=== PATIENT | female | born 1950 | race Caucasian/White ===

== ENCOUNTER 2019-01-06 12:29 | Inpatient (IN) ==
[2019-01-06] MEDS ORDERED: TORADOL IV ONE (12:49)
--- NOTE | 2019-01-06 12:53 | PROVIDER DOCUMENTATION ---
HPI-General Adult - General Chief Complaint: Extremity Injury Stated Complaint: FALL/LEFT LOWER EXTERMITY PAIN Time Seen by Provider: 01/06/19 12:39 Source: patient Allergies/Adverse Reactions: Patient Allergies Allergy/AdvReac Type Severity Reaction Status Date / Time acetaminophen [From Lortab] AdvReac Unknown Verified 01/06/19 13:33 benzonatate AdvReac DIZZINESS Verified 01/06/19 13:33 [From Tessalon Perles] hydrocodone [From Lortab] AdvReac Unknown Verified 01/06/19 13:33 Home Medications: Home Medication List Medication Instructions Recorded Confirmed Last Taken Type Mycophenolate Mofetil [Cellcept] 250 mg PO BID 01/06/19 01/06/19 Unknown History Tacrolimus [Prograf] 1 cap PO DIRECTED 01/06/19 01/06/19 Unknown History - History of Present Illness -Gen Adult Nature of Presenting Problems: Pt. is 68 yof that presents with c/o left hip pain after she states she missed a step and caused her to fall. She denies any other pain. Pt. reports a Hx of liver transplant 10 years ago. She has not other complaints. Location of Pain/Injury: reports: pelvis (Left hip). denies: none, head, face, mouth, neck, chest, upper extremity, hand(s), abdomen, back, genitalia, lower extremity, feet, upper body, lower body, generalized, other Pain Radiation: reports: no radiation. denies: arm(s), back, buttocks, chest, epigastric, feet, groin, jaw, flank (L), legs (lower), LLQ, LUQ, neck, periumbilical, flank (R), RLQ, RUQ, shoulder(s), scapula, scrotal, sternal notch, suprapubic, legs (upper), urethral, vaginal, other Quality of Pain: reports: aching. denies: burning, cramping, sharp, stabbing, throbbing, tightness Severity: reports: moderate. denies: mild, severe Onset/Duration: reports: abrupt, just prior to arrival Timing: reports: still present. denies: improving, intermittent, constant, getting worse Context/Activities at Onset: reports: light activity, recent trauma history Modifying Factors: improves with: immobilization. worse with: movement Associated Symptoms: reports: joint pain (Left hip). denies: denies symptoms, anxiety, arm pain, back/neck pain, chest pain, constipation, cough, diaphoresis, diarrhea, dizziness, EENT symptoms, fatigue, fever/chills, genitourinary problems, headaches, heartburn, loss of appetite, malaise, muscle aches, sinus congestion/drainage, nausea, rash, seizure, shortness of breath, sensory/motor loss, pain with inspiration, swelling/mass in abdomen, syncope, vomiting, weakness, trouble walking, other Similar Symptoms Previously?: No Recently seen or treated by another doctor?: No Review of Systems - Adult - REVIEW OF SYSTEMS - ADULT Constitutional: reports: no symptoms reported Eyes: reports: no symptoms reported Ears, Nose, Mouth & Throat: reports: no symptoms reported Cardiovascular: reports: no symptoms reported Respiratory: reports: no symptoms reported Gastrointestinal: reports: no symptoms reported Genitourinary: reports: no symptoms reported Musculoskeletal: reports: see HPI, joint pain (Left hip). denies: back pain, muscle aches, neck pain Integumentary: reports: no symptoms reported Neurological: reports: no symptoms reported Psychiatric: reports: no symptoms reported Past History - Adult - PAST MEDICAL HISTORY-ADULT Review of Records: reports: Old Records Reviewed, Nursing Assessment Review, Medications Reviewed, Social history reviewed & non-contributory. - IMMUNIZATION STATUS Childhood Immunizations: See Nurse Assessment Flu Vaccine: See Nurse Assessment - FAMILY HISTORY Family History: reviewed, not pertinent - SOCIAL HISTORY Smoking: non-smoker Physical Exam-General - PHYSICAL EXAM-ADULT Initial Vital Signs Reviewed: Yes - CONSTITUTIONAL General Appearance: alert, no apparent distress, thin. negative: anxious, slow to respond, obtunded, combative - EYES Eyes: PERRL/EOMI, pink conjunctivae. negative: conjuctival exudate, scleral icterus, subconjunctival hemorrhage - HEAD, EARS, NOSE, MOUTH & THROAT HENMT: normocephalic/atraumatic, moist mucous membranes. negative: angioedema, frontal tenderness, maxillary tenderness - NECK Neck: non-tender, full range of motion, supple, normal inspection. negative: lymphadenopathy, trachial deviation, thyromegaly - RESPIRATORY Respiratory: lungs clear, normal breath sounds. negative: crackles, rales, rhonchi, stridor, wheezing - CARDIOVASCULAR Cardiovascular: normal peripheral pulses, regular rate, rhythm, no edema, no JVD . negative: extra beats, friction rub, irregularly irregular - GASTROINTESTINAL (ABDOMEN) Abdominal Exam: normal bowel sounds, non tender, soft. negative: distended, guarding, rigid, rebound, tenderness, hernia, mass - LYMPHATIC Lymphatic: no adenopathy. negative: axilla node tender, cervical node tenderness - MUSCULOSKELETAL Back Exam: normal inspection, no CVA tenderness, no vertebral tenderness. negative: ecchymosis, swelling, vertebral tenderness Extremity: tenderness (Left hip). negative: deformity, erythema, inflammation, swelling Peripheral Pulses: radial (R): 2+, radial (L): 2+ - SKIN Integumentary: normal color, normal turgor, warm/dry. negative: cyanosis, erythema, jaundice, pallor, swelling, tenderness - NEUROLOGIC Neurologic: grossly normal, no motor/sensory deficits. negative: aphasia, facial droop, focal weakness, motor weakness, sensory deficit - PSYCHIATRIC Psych/Mental Status: normal mood/affect, normal thought content, normal thought process, oriented x 3. negative: anxious, paranoid, tearful Progress - PLAN OF CARE/RESULTS Progress/Plan/Lab Results: Vital Signs - 8 hr 01/06/19 12:37 Temperature 98.5 F Pulse Rate 89 Respiratory Rate 18 O2 Sat by Pulse Oximetry 96 Orders Category Date Time Status CHEST-1 VIEW [RAD] Stat Exams 01/06/19 12:44 Ordered XRAY PELVIS W/HIP 2-3VW LT [RAD] Stat Exams 01/06/19 12:44 Ordered Laboratory Tests 01/06/19 13:49 Urine Source CATH Discussed results and plan of care with patient. Patient agrees with plan and verbalizes understanding. Result Diagrams: 01/06/19 13:49 - XRAY 1 XRAY Study: Chest ([facility] [address], [address], [place] [address] Department of Imaging Patient: DANIEL WATERMAN Date: 01/06/19MR#: [id number] : 1950ADM Status: REG [facility]#: [id number] Ag e/Sex: 68/FRoom/Bed: Loc: ED Ordering Physician: Rodriguez Lagos Family Physician: Pari Trimble MD Reason for Procedure: Fall Signed EXAM: CHEST-1 VIEW HISTORY: Fall TECHNIQUE: Chest single view COMPARISON: 02/01/2015 FINDINGS: The lungs are well expanded. There is scarring in the apices. No pneumothorax. The heart is not enlarged. The vessels are not distended. There are no infiltrates. No effusion identified. Moderate scoliosis. IMPRESSION: No injury. Electronically signed by Len Molina 01/06/2019 1:18 PM 01/06/19 1318 Interpreting Physician: Len Molina MD Dictated Date/Time: 01/06/19 1317 cc: Rodriguez Lagos; Pari Trimble MD) XRAY Interpretation: See note 2 XRAY: Left XRAY Study: Hip ([facility] [address] [facility], [address], [place] [address] Department of Imaging Patient: DANIEL WATERMAN Date: 01/06/19MR#: [id number] : 1950ADM Status: REG ERAcct#: [id number] Age/Sex: 68/FRoom/Bed: Loc: ED Ordering Physician: Rodriguez Lagos Family Physician: Pari Trimble MD Reason for Procedure: fall Signed EXAM: XRAY PELVIS W/HIP 2-3VW LT 01/06/2019 HISTORY: fall TECHNIQUE: AP pelvis and left hip three views COMMENT: There is an intertrochanteric fracture of the left femur. There is generalized osteopenia. This was not p resent on 01/15/2017. IMPRESSION: Left intertrochanteric fracture. Electronically signed by Jama Stuart 01/06/2019 1:17 PM 01/06/197 Interpreting Physician: Jama Stuart MD Dictated Date/Time: 01/06/197 cc: Rodriguez Lagos; Pari Trimble MD) XRAY Interpretation: See note - CONSULTS/PCP/HOSPITALIST Notification #1 *Consult/PCP/Hospitalist*: Dr. Mosqueda Time Discussed: 13:24 Reason/Comments: Consult Consult Disposition: other (Call the liver transplant clinic and make sure they do not want this patient transferred first. Called Dr. Mosqueda back and advised him that the patient could stay here per the liver transplant clinic.) #2 Consult: Dr. Dominguez at [facility] liver transplant clinic Time Discussed: 13:45 Reason/Comments: Consult Consult Disposition: other (Pt. may stay in [place] and is ok to hold meds the day of the surgery.) #3 Consult: Mike for Dr. Carter Time Discussed: 14:00 Reason/Comments: Admission Consult Disposition: Will see in ED, Admit Departure - Departure Date of Disposition Decision: 01/06/19 Time of Disposition Decision: 14:01 DIAGNOSIS: Intertrochanteric fracture of left femur Qualifiers: Encounter type: initial encounter Fracture type: closed Fracture alignment: nondisplaced Qualified Code(s): S72.145A - Nondisplaced intertrochanteric fracture of left femur, initial encounter for closed fracture Disposition: HOME 01 Certified Medical Emergency: Emergent Condition: Stable Additional Freetext Instructions: ED Follow Up Instructions: You have been treated by a care provider in the Emergency Department. These instructions are being provided to you so you can have an understanding of how to care for yourself upon discharge. Upon discharge from the Emergency De partment, you are responsible for making arrangements for follow-up care by a physician of your choice. Take all prescribed medications as directed. Return to the Emergency Department immediately for any new or worsening symptoms. You may call the Physician Referral phone number at [phone] to obtain a list of Physicians who are taking new patients. Referrals and Follow-Ups: Pari Trimble MD [Primary Care Provider] - - Critical Care Note This patient required my direct & personal management of CC.: No Attestation - Physician/ MALIK Attestation Patient care was provided by Advanced Practice Provider:: Yes Advanced Practice Provider:: Rodriguez Lagos Advanced Practice Provider documentation review:: The Mid-level provider documentation, treatment plan and medical decision making was reviewed by the physician who agrees with all treatment and medical decision making by the MLP. The physician spent face to face time with patient:: No Advanced Practice Provider documentation review:: Supervising physician onsite and consulted in the evaluation and care of this patient. The physician did not have a face to face encounter with the patient.
--- NOTE | 2019-01-06 13:19 | Diag Imaging Result Doc PS360 ---
EXAM: XRAY PELVIS W/HIP 2-3VW LT 01/06/2019 HISTORY: fall TECHNIQUE: AP pelvis and left hip three views COMMENT: There is an intertrochanteric fracture of the left femur. There is generalized osteopenia. This was not present on 01/15/2017. IMPRESSION: Left intertrochanteric fracture. Electronically signed by Jama Stuart 01/06/2019 1:17 PM
--- NOTE | 2019-01-06 13:20 | Diag Imaging Result Doc PS360 ---
EXAM: CHEST-1 VIEW HISTORY: Fall TECHNIQUE: Chest single view COMPARISON: 02/01/2015 FINDINGS: The lungs are well expanded. There is scarring in the apices. No pneumothorax. The heart is not enlarged. The vessels are not distended. There are no infiltrates. No effusion identified. Moderate scoliosis. IMPRESSION: No injury. Electronically signed by Len Molina 01/06/2019 1:18 PM
[2019-01-06] MEDS ORDERED: ZOFRAN IV ONE (13:24)
[2019-01-06] MEDS ORDERED: MORPHINE IV ONE (13:24)
[2019-01-06 13:56] LABS: URINE SOURCE CATH
--- NOTE | 2019-01-06 13:56 | ED EKG INTERP ---
This chart was entered by Rupal Joseph Scribe, acting as scribe for Bala Gil MD. EKG Interpretation - EKG Time of EKG reading by physician:: 13:30 EKG Read and Signed by:: Bala Gil EKG Interpretation (*Must complete 3 of following elements*): Abnormal Rate: 81 Rhythm: nsr [place]: normal QRS: other (prolonged qt) TN Interval: normal ST Wave: normal Prior EKG Comparison: no prior EKG Attestation - Physician/ MALIK Attestation Patient care was provided by Advanced Practice Provider:: Yes Advanced Practice Provider documentation review:: The Mid-level provider documentation, treatment plan and medical decision making was reviewed by the physician who agrees with all treatment and medical decision making by the MLP. The physician spent face to face time with patient:: No Advanced Practice Provider documentation review:: Supervising physician onsite and consulted in the evaluation and care of this patient. The physician did not have a face to face encounter with the patient. This chart was documented by the indicated scribe, (Rupal Joseph Scribe) and accurately reflects the services I performed and decisions made by me, Bala Gil MD, as attested by the provider's signature.
[2019-01-06 14:03] LABS: BILIRUBIN URINE NEGATIVE (NEGATIVE); BLOOD URINE NEGATIVE (NEGATIVE); COLOR YELLOW; GLUCOSE URINE NEGATIVE (NEGATIVE); KETONE URINE 60 mg/dL (NEGATIVE); LEUKOCYTES URINE NEGATIVE (NEGATIVE); NITRITE URINE NEGATIVE (NEGATIVE); PH URINE 6.5; PROTEIN URINE TRACE mg/dL (NEGATIVE); SP GRAVITY URINE 1.018; TURBIDITY URINE CLEAR (CLEAR); UROBILINOGEN URINE NORMAL (NORMAL)
[2019-01-06 14:04] LABS: HEMATOCRIT 38.8 % (37.0-47.0); HEMOGLOBIN 12.6 g/dL (12.0-16.0); MCH 28.6 PG (27-31); MCHC 32.5 g/dL (33-37); MCV 88.2 FL (81-99); MPV 12.9 FL (7.4-10.4); NEUT% 89.2 % (42.2-75.2); PLT 142 X1000 (130-400); RDW 13.6 % (11.5-14.5); WBC 11.94 X1000 (4.8-10.8)
[2019-01-06 14:05] LABS: BASO# 0.03 X1000 (0.0-0.2); BASO% 0.3 % (0.0-0.8); EOS# 0.03 X1000 (0.0-0.7); EOS% 0.3 % (0.0-10.0); LYMPH% 4.2 % (20.5-51.1); MONO# 0.72 X1000 (0.11-0.59); NEUT# 10.66 X1000 (1.4-6.5)
[2019-01-06 14:07] LABS: UR EPITHELIAL CELLS <10 /HPF (<10); URINE BACTERIA NEGATIVE /HPF; URINE RBC <10 /HPF (<10); URINE WBC <10 /HPF (<10)
[2019-01-06 14:19] LABS: POTASSIUM 3.6 mmol/L (3.5-5.1); SODIUM 137 mmol/L (136-145)
[2019-01-06 14:20] LABS: AGAP 12; ALB/GLOB RATIO 1.7; ALKALINE PHOSPHATASE 67 U/L (32-104); BUN 9 mg/dL (8-22); CALCIUM 8.7 mg/dL (8.8-10.2); CHLORIDE 100 mmol/L (98-107); COSMO 274; CREATININE 0.7 mg/dL (0.5-0.9); ESTIMATED GFR > 60; GLUCOSE 120 mg/dL (70-104); GOT 20 U/L (10-30); GPT 12 U/L (10-36); TCO2 25 mmol/L (25-35); TOTAL BILIRUBIN 0.87 mg/dL (0.20-1.00); TOTAL PROTEIN 6.3 g/dL (6.3-8.3)
--- NOTE | 2019-01-06 14:38 | EKG Report ---
Test Performed on : 01/06/2019 1:30:46 PM Test Reason : admit Blood Pressure : / mmHG Vent. Rate : 081 BPM Atrial Rate : 081 BPM P-R Int : 166 ms QRS Dur : 088 ms QT Int : 428 ms P-R-T Axes : 071 043 069 degrees QTc Int : 497 ms Normal sinus rhythm. Prolonged QT Abnormal ECG When compared with ECG of 05-MAR-2012 15:29, No significant change was found Unconfirmed Result
[2019-01-06] MEDS ORDERED: PROTONIX IV SCH (16:30)
[2019-01-06] MEDS ORDERED: SODIUM CHLORIDE 0.9% INJ SCH (16:30)
[2019-01-06] MEDS: MORPHINE IV PRN ×3 (16:45→23:28)
[2019-01-06] MEDS: NS 1,000 ML IV SCH ×2 (16:51→23:29)
[2019-01-06] MEDS: MIRALAX PO SCH (17:26)
[2019-01-06] MEDS ORDERED: KEFZOL 1 GM/D5W 1 GM/50 ML IVPB IV ONE (17:46)
[2019-01-06] MEDS ORDERED: OXY IR PO PRN (17:47)
--- NOTE | 2019-01-06 18:45 | HISTORY AND PHYSICAL ---
CHIEF COMPLAINT: Fall, hip pain. HISTORY OF PRESENT ILLNESS: This is a 68-year-old female with a history of a liver transplant status post 10 years ago who presents to the emergency room after falling walking down the steps and sustaining a left intertrochanteric fracture. She stated that she missed the last step causing her to fall. She denied any further injuries, any loss of consciousness. PAST MEDICAL HISTORY: Liver transplant status post 10 years. SOCIAL HISTORY: She denies alcohol, tobacco or illicit drug use. ALLERGIES: Tylenol, Kamiah and Tessalon Perles. HOME MEDICATIONS: 1. CellCept 250 mg p.o. b.i.d. 2. Tacrolimus as directed. REVIEW OF SYSTEMS: Discussed with patient with pertinent positives stated in the HPI. She denied any syncope, dizziness, chest pain, palpitations, any cough, fever, shortness of breath, any nausea, vomiting, diarrhea, constipation, black or bloody vomitus or stools, any hematuria, dysuria, frequency, urgency. PHYSICAL EXAMINATION: GENERAL: This is a 68-year-old female who is lying in the stretcher in the emergency room in no distress. VITAL SIGNS: Blood pressure is 133/81, with a heart rate of 88, respirations are 16, temperature is 98.5 oral with room air sats 98-99%. EYES: Pupils equal, round, react to light. EOMs are intact. Sclerae anicteric. HEENT: Head is normocephalic, atraumatic. Mucous membranes are moist. NECK: Supple, with trachea midline. CARDIOVASCULAR: Regular rate and rhythm. S1 and S2 appreciated. She has no murmur. No lower extremity edema. Calves are nontender bilaterally with peripheral pulses palpable x 4 extremities. PULMONARY: Breath sounds are clear with no increased work of breathing noted. Chest rises and falls symmetrically with respiration. Chest wall is nontender to palpation. GASTROINTESTINAL: Abdomen is soft, nontender, nondistended with bowel sounds in all 4 quadrants. GENITOURINARY: [place] is draining clear yellow urine. NEUROLOGIC: She is alert oriented x 3. SKIN: Warm and dry. LABS: WBC is 11.9, with hemoglobin 12.6, hematocrit 38.8, platelets of 142,000. Sodium is 137, potassium 3.6, BUN 9, creatinine 0.7, with a glucose of 120. Urinalysis is essentially negative. Chest x-ray revealed no injury. Left hip and pelvis x-ray revealed left intertrochanteric femur fracture. ASSESSMENT AND PLAN: 1. Left intertrochanteric femur fracture. 2. History of liver transplant. We will continue CellCept and Prograf. 3. Pain. We will give IV morphine and follow. PLAN: The patient will be admitted to the hospital at [facility], [place]. She will be n.p.o. at present. Will start IV hydration. Dr. Mosqueda in Orthopedics has been consulted. We will continue her Prograf and CellCept as ordered, giving IV morphine for pain and Zofran for nausea if needed. We will give Protonix for PPI. Further treatments pending hospital course. Patient seen and examined by me face to face, all the laboratory, images and vital signs were reviewed, patient presented to the emergency department due to pain at the level of the left hip after a fall, images showed an intertrochanteric fracture, other than her pain and inflammation in the area her exam is benign, she has a history of liver transplant but she is stable with her medications, orthopedic surgery will be consulted, I agree with the LIGHTING ENGINEER' assessment and plan, Ever Pulliam MD. Dictated by ROBERTO CARLOS Heller for Ever Anaya MD cc: ROBERTO CARLOS Heller MD [facility]
[2019-01-06] MEDS: CELLCEPT PO SCH ×2 (20:55→21:06)
[2019-01-06] MEDS: ZOFRAN IV PRN (21:57)
--- NOTE | 2019-01-06 22:55 | CONSULTATION ---
DATE OF CONSULTATION: 01/06/2019 CHIEF COMPLAINT: Left hip injury. HISTORY OF PRESENT ILLNESS: Vero Vaughn is a 68-year-old female who fell and injured her left hip. She complains of left hip pain, deformity, and inability to ambulate. She was seen in the ER where she was diagnosed with an intertrochanteric hip fracture, and I was asked to see her in orthopedic consultation. She has a history of a liver transplant. They called her liver transplant team in [place] who stated that she was stable to stay here to have her surgery and instructed the hospitalist on postoperative care. PAST MEDICAL HISTORY: See admission History and Physical. PAST SURGICAL HISTORY: See admission History and Physical. ALLERGIES: See admission History and Physical. REVIEW OF SYSTEMS: Reviewed for all systems, and it was negative except as noted above with pain in her hip and inability to ambulate. MEDICATIONS: See admission medication list. X-RAYS: Show a left intertrochanteric hip fracture with a fractured lesser trochanter as well. IMPRESSION: Left intertrochanteric hip fracture with lesser trochanter fracture. PLAN: We are going to plan on performing a trochanteric fixation long nail placement tomorrow. I have discussed with her the risks, benefits, and alternatives of surgery, including, but not limited to, bleeding, nerve damage, infection, risk from anesthesia, hardware failure, malunion, nonunion, deep venous thrombosis, up to including loss of limb and life and other imponderables. She voices her understanding. All questions were answered. No guarantees were given. She requested to proceed as planned, and we will schedule surgery tomorrow about noon. cc: Waqar Mosqueda MD [facility]
[2019-01-07] MEDS: MORPHINE IV PRN ×3 (03:14→09:33)
[2019-01-07] MEDS: ZOFRAN IV PRN ×2 (03:14→09:33)
[2019-01-07] MEDS: NS 1,000 ML IV SCH ×3 (06:04→18:15)
[2019-01-07 06:26] LABS: HEMATOCRIT 34.7 % (37.0-47.0); HEMOGLOBIN 11.2 g/dL (12.0-16.0); MCHC 32.3 g/dL (33-37); MCV 89.9 FL (81-99); MPV 13.3 FL (7.4-10.4); RBC 3.86 XMIL (4.2-5.4); RDW 13.5 % (11.5-14.5); WBC 6.17 X1000 (4.8-10.8)
[2019-01-07 06:54] LABS: AGAP 11; BUN 5 mg/dL (8-22); CALCIUM 7.8 mg/dL (8.8-10.2); CHLORIDE 102 mmol/L (98-107); COSMO 271; CREATININE 0.5 mg/dL (0.5-0.9); ESTIMATED GFR > 60; GLUCOSE 102 mg/dL (70-104); POTASSIUM 3.4 mmol/L (3.5-5.1); SODIUM 137 mmol/L (136-145); TCO2 24 mmol/L (25-35)
[2019-01-07] MEDS ORDERED: KEFZOL 1 GM/D5W 1 GM/50 ML IVPB IV ONE (08:00)
[2019-01-07] MEDS: PROGRAF PO SCH ×2 (09:03→21:12)
[2019-01-07] MEDS: MIRALAX PO SCH (09:03)
[2019-01-07] MEDS: CELLCEPT PO SCH ×2 (09:03→21:13)
[2019-01-07] MEDS ORDERED: DIPRIVAN 1% ONE (10:28)
[2019-01-07] MEDS ORDERED: KEFZOL 1 GM/D5W 1 GM/50 ML IVPB ONE (11:16)
[2019-01-07] MEDS ORDERED: PERCOCET-5 PO PRN (11:17)
[2019-01-07] MEDS ORDERED: DECADRON ONE (11:32)
[2019-01-07] MEDS ORDERED: XYLOCAINE-MPF 2% ONE (11:32)
[2019-01-07] MEDS ORDERED: ROBINUL ONE (11:32)
[2019-01-07] MEDS ORDERED: TORADOL ONE (11:32)
[2019-01-07] MEDS ORDERED: QUELICIN (DOSE) ONE (11:32)
[2019-01-07] MEDS ORDERED: ZOFRAN ONE (11:32)
[2019-01-07] MEDS ORDERED: OFIRMEV 1000 MG/ISOTONIC SOLN 0 MG/0 ML BOTTLE ONE (11:32)
[2019-01-07] MEDS: DILAUDID ONE ×2 (12:59→13:03)
[2019-01-07] MEDS ORDERED: MORPHINE IV PRN ×2 (13:04→14:31)
[2019-01-07] MEDS ORDERED: MILK OF MAGNESIA PO PRN ×2 (13:04→14:31)
[2019-01-07] MEDS ORDERED: ZOFRAN IV PRN ×3 (13:04→14:40)
[2019-01-07] MEDS ORDERED: LR 500 ML ONE (13:11)
[2019-01-07] MEDS ORDERED: HALDOL IV PRN ×2 (13:15→14:45)
--- NOTE | 2019-01-07 14:24 | PROGRESS NOTE ---
DATE: 01/07/2019 SUBJECTIVE: This patient just came back from surgery. She had a left intertrochanteric femur fracture, status post repair. I believe they used a TFN. It looks like she tolerated well the procedure. She is completely alert and oriented x3 at this moment. Vital signs are stable. She is complaining of some discomfort in that surgical area. OBJECTIVE: Vital Signs: Temperature 98.5 degrees, pulse 92, respiratory rate 18, blood pressure 129/51, oxygen saturation 99 on room air. HEENT: Head normocephalic. No trauma. PERRLA. Neck: Supple. No JVD. No masses. Central trachea. Chest: Clear to auscultation. No wheezing. No rales. Abdomen: Soft, nontender, nondistended. No hepatosplenomegaly. Extremities: Left hip with a dressing and also a dressing covering the distal part of the left thigh. They have a little bit of serosanguineous material on them. Pulses are present. She is able to move her toes. No ischemic issues at this moment. LABORATORY: WBC 6.1, hemoglobin 11.2, hematocrit 34.7, platelets 121,000. Sodium 137, potassium 3.4, chloride 102, bicarbonate 24, BUN 5, creatinine 0.5, glucose 102, calcium 7.8. ASSESSMENT AND PLAN: 1. Left intertrochanteric femur fracture, status post repair. I believe they used a TFN; pending operative note. We will monitor her pain. I will start this patient on DVT prophylaxis. 2. History of liver transplant. Continue with CellCept and Prograf. 3. Deep vein thrombosis prophylaxis with heparin. 4. Gastrointestinal prophylaxis with pantoprazole. cc: Ever Anaya MD
[2019-01-07] MEDS ORDERED: OXY IR PO PRN (14:31)
[2019-01-07] MEDS ORDERED: TYLENOL PO SCH (15:00)
[2019-01-07] MEDS: TYLENOL PO SCH ×2 (15:00→21:13)
--- NOTE | 2019-01-07 16:04 | OPERATIVE NOTE ---
PROCEDURE DATE: 01/07/2019 PREOPERATIVE DIAGNOSIS: Left intertrochanteric hip fracture with lesser trochanter fracture. POSTOPERATIVE DIAGNOSIS: Left intertrochanteric hip fracture with lesser trochanter fracture. PROCEDURE PERFORMED: Left long trochanteric fixation nail using a size 400 mm nail, an 85 mm helical blade, 42 and 48 mm distal locking screws. ANESTHESIA: Spinal. SURGEON: Waqar Mosqueda MD. MANAGER FIXED INCOME: Angelica Hermosillo PA-C. COMPLICATIONS: None. BLOOD LOSS: Minimal. DESCRIPTION OF PROCEDURE: The patient was brought to the operative suite and placed in supine position. After successful administration of general anesthesia, the patient was placed on the usual position for the left hip. The left hip was then reduced and prepped and draped in the usual sterile fashion. Longitudinal incision made proximal to the tip of the greater trochanter. A guide pin was placed in center of the femoral canal on AP and lateral images. It was reamed with the cannulated reamer and then a ball-tipped guide pin was buried in the distal metaphysis. It was measured to 4 mm. The 400 mm nail was then driven into place over the wire and then the wire was removed through a stab incision laterally using the proximal guide. A guide pin was placed in center of the femoral head on AP and lateral images. Once this was verified to be in good position, it was measured to 85 mm. It was reamed and the helical blade was driven into place. The locking screw was then locked and released to allow compression. The traction was released and the helical blade was compressed. Once this was completed, attention was directed to the distal locking screws using the perfect circles technique through stab incisions these were measured to proper length of 42 and 48 mm proximal to distal and then these were driven into place. Excellent reduction of the fracture and placement of the hardware was obtained on AP and lateral images. The wounds were copiously irrigated. The skin edge approximated with 2-0 Vicryl, skin was closed with skin red and a sterile dressing was applied. The patient tolerated the procedure well without complication. At the end of the procedure all counts correct x 2. The patient was transferred to the recovery room in stable condition. cc: Waqar Mosqueda MD
[2019-01-07] MEDS: OXY IR PO PRN ×2 (18:29→21:30)
[2019-01-07] MEDS ORDERED: HEPARIN SUBQ SCH (21:00)
[2019-01-07] MEDS ORDERED: COLACE PO SCH (21:00)
[2019-01-07] MEDS: COLACE PO SCH (21:12)
[2019-01-07] MEDS: PERIDEX MT SCH (21:12)
[2019-01-07] MEDS: KEFZOL 1 GM/D5W 1 GM/50 ML IVPB IV SCH (21:14)
[2019-01-08] MEDS: TYLENOL PO SCH ×3 (04:31→23:41)
[2019-01-08] MEDS: KEFZOL 1 GM/D5W 1 GM/50 ML IVPB IV SCH (04:32)
[2019-01-08] MEDS: NS 1,000 ML IV SCH (04:32)
[2019-01-08 06:25] LABS: AGAP 9; BUN 6 mg/dL (8-22); CALCIUM 7.3 mg/dL (8.8-10.2); CHLORIDE 100 mmol/L (98-107); COSMO 266; CREATININE 0.6 mg/dL (0.5-0.9); ESTIMATED GFR > 60; GLUCOSE 140 mg/dL (70-104); POTASSIUM 3.3 mmol/L (3.5-5.1); SODIUM 133 mmol/L (136-145); TCO2 24 mmol/L (25-35)
[2019-01-08] MEDS: PROTONIX PO SCH (06:27)
[2019-01-08] MEDS ORDERED: FERROUS SULFATE PO SCH (08:00)
[2019-01-08] MEDS ORDERED: KLOR-CON PO ONE (08:12)
[2019-01-08 08:54] LABS: HEMATOCRIT 25.4 % (37.0-47.0); HEMOGLOBIN 8.2 g/dL (12.0-16.0)
[2019-01-08] MEDS: FERROUS SULFATE PO SCH (09:06)
[2019-01-08] MEDS: CELLCEPT PO SCH ×2 (09:06→23:39)
[2019-01-08] MEDS: MIRALAX PO SCH (09:06)
[2019-01-08] MEDS: PROGRAF PO SCH ×2 (09:06→23:40)
[2019-01-08] MEDS: PERIDEX MT SCH ×2 (09:06→23:40)
[2019-01-08] MEDS: OXY IR PO PRN ×2 (09:06→18:54)
[2019-01-08 11:54] LABS: HEMATOCRIT 24.9 % (37.0-47.0); HEMOGLOBIN 8.1 g/dL (12.0-16.0)
--- NOTE | 2019-01-08 12:34 | ORTHOPAEDICS PROGRESS NOTE ---
DATE: 01/08/2019 SUBJECTIVE: Vero Vaughn is a 68-year-old female who is postoperative day 1 from a trochanteric fixation nail placement. She has no complaints. She did have some draining from her left leg earlier that they reinforced the bandage. OBJECTIVE: She is a well-developed, well-nourished female. She is alert, oriented, and cooperative with exam. Her vital signs are stable. She is afebrile. LABORATORY DATA: Her hemoglobin is 11.2, her hematocrit is 34.7, her platelet count is borderline at 121,000. However, she says it is normally somewhat low due to her liver transplant. ASSESSMENT: Stable left trochanteric fixation nail. PLAN: We would just hold Lovenox today, change her dressing tomorrow, and perhaps give it to her tomorrow depending on if there is any more active bleeding. We will get her working with Physical Therapy today as well, and she has compression hose for prevention of DVT as well. cc: Waqar Mosqueda MD
--- NOTE | 2019-01-08 14:10 | PROGRESS NOTE ---
DATE: 01/08/2019 SUBJECTIVE: This patient is feeling better. She is complaining of left hip pain. She is status post PFN placement due to a left intertrochanteric femur fracture. Her hemoglobin dropped to 8.2. She is in that regard asymptomatic. We will monitor her hemoglobin and hematocrit. We will transfuse as needed. I do not see any evidence of bleeding right now. I agree with Dr. Mosqueda. The dose of the Lovenox has been held for today, and we will re-evaluate tomorrow. For DVT prophylaxis, she has JUNIOR hoses. OBJECTIVE: Vital Signs: Temperature 98.4 degrees, pulse 87, respiratory rate 12, blood pressure 100/57, and oxygen saturation 100% on 1 L of nasal cannula. HEENT: Head is normocephalic. No trauma. PERRLA. Neck: Supple. No JVD. No masses. Central trachea. Chest: Clear to auscultation. No wheezing. No rales. Abdomen: Soft, nontender, and nondistended. No hepatosplenomegaly. Extremities: Left hip with a dressing which is clean. Also, she has a new dressing covering the distal part of the left thigh. As per the patient, she was having some bleeding earlier through that area. Pulses are present. No signs of ischemia. LABORATORY: Hemoglobin 8.2, hematocrit 25.4, sodium 133, potassium 3.3, chloride 100, bicarbonate 24, BUN 6, creatinine 0.6 glucose 140, and calcium 7.3. ASSESSMENT AND PLAN: 1. Left intertrochanteric femur fracture status post fixation nail. She seems to be stable. Her hemoglobin dropped to 8.2. We will monitor her hemoglobin and hematocrit multiple times today and also tomorrow morning. I agree with Dr. Mosqueda on holding the Lovenox for today. We will re-evaluate tomorrow. For DVT prophylaxis, we will use JUNIOR hoses. 2. Anemia, likely secondary to acute blood loss. We will monitor. If hemoglobin continues to drop, we will go ahead and transfuse this patient, but at this moment she is asymptomatic. 3. History of liver transplant. Continue with CellCept and Prograf. 4. Deep vein thrombosis prophylaxis with JUNIOR hose. 5. Gastrointestinal prophylaxis with pantoprazole. 6. Hypokalemia. Will replace the potassium. cc: Ever Anaya MD
[2019-01-08] MEDS: LOVENOX SUBQ SCH (17:47)
[2019-01-08 20:16] LABS: HEMATOCRIT 25.6 % (37.0-47.0); HEMOGLOBIN 8.3 g/dL (12.0-16.0)
[2019-01-08] MEDS: COLACE PO SCH (23:40)
[2019-01-09] MEDS: PROTONIX PO SCH (06:17)
[2019-01-09] MEDS: TYLENOL PO SCH (06:17)
[2019-01-09 06:34] LABS: HEMATOCRIT 24.4 % (37.0-47.0); HEMOGLOBIN 7.8 g/dL (12.0-16.0)
[2019-01-09 06:58] LABS: AGAP 6; BUN 6 mg/dL (8-22); CALCIUM 7.7 mg/dL (8.8-10.2); CHLORIDE 108 mmol/L (98-107); COSMO 277; CREATININE 0.6 mg/dL (0.5-0.9); ESTIMATED GFR > 60; GLUCOSE 103 mg/dL (70-104); POTASSIUM 3.9 mmol/L (3.5-5.1); SODIUM 140 mmol/L (136-145); TCO2 26 mmol/L (25-35)
[2019-01-09] MEDS: LOVENOX SUBQ SCH (07:08)
[2019-01-09 07:45] VITALS: BP 125/53
[2019-01-09] MEDS: MIRALAX PO SCH (09:25)
[2019-01-09] MEDS: CELLCEPT PO SCH (09:26)
[2019-01-09] MEDS: PROGRAF PO SCH (09:27)
[2019-01-09] MEDS: PERIDEX MT SCH (09:27)
[2019-01-09] MEDS: FERROUS SULFATE PO SCH (09:27)
--- NOTE | 2019-01-09 15:56 | DISCHARGE SUMMARY ---
ADMISSION DATE: 01/06/2019 DISCHARGE DATE: 01/09/2019 ADMISSION DIAGNOSIS: 1. Left intertrochanteric hip fracture. 2. History of liver transplant. DISCHARGE DIAGNOSIS: 1. Left intertrochanteric hip fracture. 2. History of liver transplant. 3. Acute blood loss anemia. 4. Hypokalemia. CONSULTATIONS: Waqar Mosqueda MD with Orthopedics. DIAGNOSTIC PROCEDURES AND FINDINGS: Chest x-ray 01/06/2019: No acute injury. Hip x-ray 01/06/2019: Left intertrochanteric hip fracture. EKG 01/06/2019: Sinus rhythm, no acute ST or T wave abnormalities. HOSPITAL COURSE: Mrs. Vaughn is a 68-year-old female with a history of liver transplant 10 years ago, who had a mechanical trip and fall on the day of admission with subsequent acute left hip pain. She came to the ER and was found to have a left hip fracture. Her vitals and laboratory data were unremarkable. The ER did call the [facility] Trans[facility] at [facility] and they did state that she could stay here for her treatment. We consulted Dr. Mosqueda with Orthopedics and on 01/07/2019 they did a left long trochanteric fixation nail procedure. She tolerated the surgery without complication. She actually did quite well after surgery, however, she did dip her hemoglobin down to 7.8, which prompted Dr. Mosqueda to recommend aspirin over typical anticoagulant. There is no evidence of gastrointestinal bleeding or bleeding from any other source. We did consult physical therapy and social work and rehab was recommended, however, the patient refused. Overall, she is stable and ready for discharge home. DISCHARGE MEDICATION: CellCept 250 mg p.o. b.i.d., Prograf 1 mg b.i.d., Colace 200 mg at bedtime, OxyIR 5 mg p.o. q.3 hours p.r.n. pain, MiraLAX 17 g daily, Protonix 40 mg daily, aspirin 81 mg daily. DISCHARGE DIET: Normal. DISCHARGE ACTIVITY: Resume activity as tolerated per home health. DISPOSITION AND OTHER DISCHARGE INSTRUCTIONS: The patient is discharged home to home health. She is to follow up with Dr. Mosqueda and Dr. Pari Trimble her PCP as directed. She is to continue all medications as directed. She is to follow up with her transplant team as normally scheduled. She is to return to the ER or call 911 for worsening complaints or concerns. All questions answered. DISCHARGE TIME: Greater than 35 minutes. Dictated by ROBERTO CARLOS Amaral for Ever Anaya MD cc: ROBERTO CARLOS Amaral MD Richard S. Sharp, MD Sarah E. Styers, MD
--- NOTE | 2019-01-10 12:53 | DISCHARGE SUMMARY ---
ADMISSION DATE: 01/06/2019 DISCHARGE DATE: 01/09/2019 DISCHARGE DIAGNOSIS: Left hip intertrochanteric femur fracture status post left trochanteric fixation nail placement. DISPOSITION: The patient is discharged home. DISCHARGE INSTRUCTIONS: To follow up with Dr. Mosqueda in the office next and to remove the red in 10 to 14 days following her surgery, and she is to be weightbearing as tolerated on her left lower extremity. DISCHARGE MEDICATIONS: See discharge medication list. DISCHARGE HOSPITAL COURSE: On the day following her admission, the patient underwent a left intertrochanteric fixation nail placement for a left intertrochanteric femur fracture. She is doing very well postoperatively. Her vital signs have been stable, she has been afebrile, she is tolerating regular diet, and ambulating well with physical therapy. Yesterday, she walked 250 feet. She has had some acute blood loss anemia during her stay but she has been asymptomatic. She is discharged home in stable condition with instructions to follow up as described above. Dictated by ISIDRO Goodwin for Waqar Mosqueda MD cc: ISIDRO Goodwin MD
== END 2019-01-09 10:12 | disposition home or self-care (01) | DRG 481 ==
LOC: SUPCPDRO → ED 12:29 → 4N 15:59
PROVIDERS: ATTEND Internal Medicine
CPT/HCPCS: 51702; 71010; 71045; 73502; 76000; 80048; 80053; 81001; 82948; 85014; 85018; 85025; 85027; 93005; 94761; 94799; 96374; 96375; 97110; 97116; 97162; 97530; 99285; A9270; C9113; J0131; J0330; J0690; J1100; J1170; J1650; J1885; J2270; J2405; J7030; J7120; J7517; S0164; XXXXX